=== PATIENT | female | born 1975 ===

== ENCOUNTER 2019-06-14 09:46 | Emergency (ER) | payer OTHER ==
[2019-06-14 09:56] VITALS: BP 120/73
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
[2019-06-14] MEDS ORDERED: IBUPROFEN 800 MG TAB PO ONE (11:16)
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
[2019-06-14] MEDS ORDERED: CYCLOBENZAPRINE 10 MG TAB PO ONE (11:40)
[2019-06-14] MEDS ORDERED: HYDROcodone/ACETAMINOPHEN 5-325 MG TAB PO ONE (11:40)
== END 2019-06-14 11:56 | disposition home or self-care (01) ==
LOC: ED 09:46
DX: S70.02XA Contusion of left hip, initial encounter (principal); Z79.899 Other long term (current) drug therapy; V49.59XA Passenger injured in collision with other motor vehicles in traffic accident, initial encounter; Y93.89 Activity, other specified; Y92.488 Other paved roadways as the place of occurrence of the external cause; Y99.8 Other external cause status
CPT/HCPCS: 71046; 99283